=== PATIENT | male | born 1960 | race Caucasian/White ===

== ENCOUNTER 2017-06-18 05:15 | Inpatient (IN) | payer OTHER ==
--- NOTE | 2017-06-18 05:28 | ED ---
Abdominal Pain HPI - General Source: patient Mode of arrival: wheelchair Limitations: no limitations - History of Present Illness MD Complaint: abdominal pain Onset/Timin -: hour(s) Location: LUQ, RUQ, epigastric Radiation: back Severity: severe Quality: aching Consistency: constant Improves With: nothing Worsens With: nothing Associated Symptoms: nausea <Feliciano Zarco - Last Filed: 06/18/17 05:42> <Jurgen Alcazar - Last Filed: 06/18/17 09:23> - General Chief Complaint: Abdominal Pain Stated Complaint: Abd pain Time Seen by Provider: 06/18/17 05:22 - Related Data Home Medications Medication Instructions Recorded Confirmed Aspirin 81 mg PO HS 02/19/16 06/18/17 Atorvastatin [Lipitor] 20 mg PO HS 02/19/16 06/18/17 Lisinopril [Zestril] 10 mg PO HS 02/19/16 06/18/17 Nitroglycerin Sl Tabs [Nitrostat] 0.4 mg SUBLINGUAL Q5M PRN 02/19/16 06/18/17 Omeprazole [PriLOSEC] 40 mg PO AC-BRKFST 02/19/16 06/18/17 Metoprolol Tartrate [Lopressor] 50 mg PO DAILY 02/21/16 06/18/17 Allergies Allergy/AdvReac Type Severity Reaction Status Date / Time No Known Allergies Allergy Verified 06/18/17 07:34 Review of Systems ROS Other: All systems not noted in ROS Statement are negative. Constitutional: Denies: fever, chills Respiratory: Denies: cough, dyspnea Cardiovascular: Denies: chest pain, palpitations, syncope Gastrointestinal: Reports: as per HPI, abdominal pain, nausea. Denies: vomiting , diarrhea, melena, hematochezia Genitourinary: Denies: dysuria, hematuria Musculoskeletal: Reports: as per HPI, back pain Skin: Denies: rash Neurological: Denies: headache, weakness, numbness <Feliciano Zarco - Last Filed: 06/18/17 05:42> ROS Other: All systems not noted in ROS Statement are negative. <Jurgen Alcazar - Last Filed: 06/18/17 09:23> ROS Statement: Those systems with pertinent positive or pertinent negative responses have been documented in the HPI. Past Medical History Past Medical History: GERD/Reflux, Hyperlipidemia, Hypertension, Sleep Apnea/ CPAP/BIPAP Additional Past Medical History / Comment(s): DOES'NR USE HIS CPAP MACHINE. HAD CHICKEN POX IN HIS 30'S, COMPRESSION FX TO VERTEBRE History of Any Multi-Drug Resistant Organisms: None Reported Past Surgical History: Heart Catheterization, Heart Catheterization With Stent, Hernia Repair Past Anesthesia/Blood Transfusion Reactions: No Reported Reaction Date of Last Stent Placement:: UNK Past Psychological History: Depression Smoking Status: Former smoker - Past Family History Mother Family Medical History: AFIB, Congestive Heart Failure (CHF), Coronary Artery Disease (CAD), Vascular Disorder Additional Family Medical History / Comment(s): CABG, HAD BKA AND SOME TOES REMOVED FROM OTHER LEG D/T VASCULAR PROBLEMS Father Family Medical History: Cancer, COPD, Coronary Artery Disease (CAD), Hypertension, Liver Disease Additional Family Medical History / Comment(s): LIVER CANCER, CABG <CaroleeFeliciano - Last Filed: 06/18/17 05:42> General Exam Limitations: no limitations General appearance: alert, in no apparent distress Head exam: Present: atraumatic, normocephalic Eye exam: Present: normal appearance. Absent: scleral icterus, conjunctival injection Neck exam: Present: normal inspection, full ROM Respiratory exam: Present: normal lung sounds bilaterally. Absent: respiratory distress, wheezes, rales, rhonchi, stridor Cardiovascular Exam: Present: regular rate, normal rhythm, normal heart sounds. Absent: systolic murmur, diastolic murmur, rubs, gallop GI/Abdominal exam: Present: soft, tenderness (Mild upper abdominal tenderness.) , normal bowel sounds. Absent: distended, guarding, rebound, rigid, mass, pulsatile mass, hernia Extremities exam: Present: normal inspection, normal capillary refill. Absent: pedal edema, calf tenderness Back exam: Present: normal inspection. Absent: CVA tenderness (R), CVA tenderness (L) Neurological exam: Present: alert Skin exam: Present: warm, dry, intact, normal color. Absent: rash <CaroleeFeliciano - Last Filed: 06/18/17 05:42> General appearance: alert, in no apparent distress Head exam: Present: atraumatic, normocephalic, normal inspection Eye exam: Present: normal appearance, PERRL, EOMI. Absent: scleral icterus, conjunctival injection, periorbital swelling ENT exam: Present: normal exam, mucous membranes moist Neck exam: Present: normal inspection. Absent: tenderness, meningismus, lymphadenopathy Respiratory exam: Present: normal lung sounds bilaterally. Absent: respiratory distress, wheezes, rales, rhonchi, stridor Cardiovascular Exam: Present: regular rate, normal rhythm, normal heart sounds. Absent: systolic murmur, diastolic murmur, rubs, gallop, clicks GI/Abdominal exam: Present: soft, normal bowel sounds. Absent: distended, tenderness, guarding, rebound, rigid Extremities exam: Present: normal inspection, full ROM, normal capillary refill. Absent: tenderness, pedal edema, joint swelling, calf tenderness Back exam: Present: normal inspection Neurological exam: Present: alert, oriented X3, CN II-XII intact Psychiatric exam: Present: normal affect, normal mood Skin exam: Present: warm, dry, intact, normal color. Absent: rash <Jurgen Alcazar - Last Filed: 06/18/17 09:23> Course <Feliciano Zarco - Last Filed: 06/18/17 05:42> <Jurgen Alcazar - Last Filed: 06/18/17 09:23> Vital Signs 06/18/17 06/18/17 06/18/17 05:18 06:28 07:38 Temperature 97.3 F L Pulse Rate 62 45 L 47 L Respiratory 20 16 20 Rate Blood Pressure 198/92 156/69 178/62 O2 Sat by Pulse 100 97 98 Oximetry - Reevaluation(s) Reevaluation #1: 06/18/17 09:22 Patient has adequate pain control at this time. (Jurgen Alcazar) Reevaluation #2: 06/18/17 09:[address] Mata regarding patient, will schedule for operating room this morning (Jurgen Alcazar) Reevaluation #3: 06/18/17 09:22 Patient informed of diagnosis, prognosis, (Jrugen Alcazar) Medical Decision Making - EKG Data -: EKG Interpreted by Me EKG shows normal: sinus rhythm, axis (Normal), intervals (Normal), QRS complexes (Normal) Rate: bradycardia (Rate 56 bpm) Interpretation: other (There are T inversions in leads V3 through 6 concern for possible anterolateral ischemia. These T inversions were present on the comparison EKG from 02/19/16) <Feliciano Zarco - Last Filed: 06/18/17 05:42> - Lab Data Result diagrams: 06/18/17 05:30 06/18/17 05:30 - Radiology Data Radiology results: report reviewed (CT abdomen and pelvis is negative for acute disease, some right upper quadrant shows signs of cholecystitis including perisystolic cholestatic fluid and gallbladder wall thickening), image reviewed <Jurgen Alcazar - Last Filed: 06/18/17 09:23> - Medical Decision Making 57 LEF relational doll pain, right upper quadrant abdominal pain, positive Singh sign exam, positive cholecystitis on ultrasound, patient will be admitted to general surgery for evaluation and treatment (Jurgen Alcazar) - Lab Data Lab Results 06/18/17 06/18/17 06/18/17 Range/Units 05:30 05:30 05:30 WBC 9.6 (3.8-10.6) k/uL RBC 4.80 (4.30-5.90) m/uL Hgb 15.7 (13.0-17.5) gm/dL Hct 44.0 (39.0-53.0) % MCV 91.5 (80.0-100.0) fL MCH 32.6 (25.0-35.0) pg MCHC 35.7 (31.0-37.0) g/dL RDW 13.8 (11.5-15.5) % Plt Count 181 (150-450) k/uL Neutrophils % 77 % Lymphocytes % 14 % Monocytes % 4 % Eosinophils % 2 % Basophils % 0 % Neutrophils # 7.4 (1.3-7.7) k/uL Lymphocytes # 1.4 (1.0-4.8) k/uL Monocytes # 0.4 (0-1.0) k/uL Eosinophils # 0.2 (0-0.7) k/uL Basophils # 0.0 (0-0.2) k/uL Sodium 141 (137-145) mmol/L Potassium 4.4 (3.5-5.1) mmol/L Chloride 105 (98-107) mmol/L Carbon Dioxide 23 (22-30) mmol/L Anion Gap 13 mmol/L BUN 8 L (9-20) mg/dL Creatinine 0.95 (0.66-1.25) mg/dL Est GFR (MDRD) Af Amer >60 (>60 ml/min/1.73 sqM) Est GFR (MDRD) Non-Af >60 (>60 ml/min/1.73 sqM) Glucose 109 H (74-99) mg/dL Calcium 9.7 (8.4-10.2) mg/dL Total Bilirubin 0.9 (0.2-1.3) mg/dL AST 24 (17-59) U/L ALT 40 (21-72) U/L Alkaline Phosphatase 93 (38-126) U/L Troponin I <0.012 (0.000-0.034) ng/mL Total Protein 7.5 (6.3-8.2) g/dL Albumin 4.5 (3.5-5.0) g/dL Amylase <30 L (30-110) U/L Lipase 134 (23-300) U/L Urine Color Urine Appearance (Clear) Urine pH (5.0-8.0) Ur Specific [place] (1.001-1.035) Urine Protein (Negative) Urine Glucose (UA) (Negative) Urine Ketones (Negative) Urine Blood (Negative) Urine Nitrite (Negative) Urine Bilirubin (Negative) Urine Urobilinogen (<2.0) mg/dL Ur Leukocyte Esterase (Negative) 06/18/17 Range/Units 06:21 WBC (3.8-10.6) k/uL RBC (4.30-5.90) m/uL Hgb (13.0-17.5) gm/dL Hct (39.0-53.0) % MCV (80.0-100.0) fL MCH (25.0-35.0) pg MCHC (31.0-37.0) g/dL RDW (11.5-15.5) % Plt Count (150-450) k/uL Neutrophils % % Lymphocytes % % Monocytes % % Eosinophils % % Basophils % % Neutrophils # (1.3-7.7) k/uL Lymphocytes # (1.0-4.8) k/uL Monocytes # (0-1.0) k/uL Eosinophils # (0-0.7) k/uL Basophils # (0-0.2) k/uL Sodium (137-145) mmol/L Potassium (3.5-5.1) mmol/L Chloride (98-107) mmol/L Carbon Dioxide (22-30) mmol/L Anion Gap mmol/L BUN (9-20) mg/dL Creatinine (0.66-1.25) mg/dL Est GFR (MDRD) Af Amer (>60 ml/min/1.73 sqM) Est GFR (MDRD) Non-Af (>60 ml/min/1.73 sqM) Glucose (74-99) mg/dL Calcium (8.4-10.2) mg/dL Total Bilirubin (0.2-1.3) mg/dL AST (17-59) U/L ALT (21-72) U/L Alkaline Phosphatase (38-126) U/L Troponin I (0.000-0.034) ng/mL Total Protein (6.3-8.2) g/dL Albumin (3.5-5.0) g/dL Amylase (30-110) U/L Lipase (23-300) U/L Urine Color Yellow Urine Appearance Clear (Clear) Urine pH 8.0 (5.0-8.0) Ur Specific [place] 1.010 (1.001-1.035) Urine Protein Negative (Negative) Urine Glucose (UA) Negative (Negative) Urine Ketones Negative (Negative) Urine Blood Negative (Negative) Urine Nitrite Negative (Negative) Urine Bilirubin Negative (Negative) Urine Urobilinogen <2.0 (<2.0) mg/dL Ur Leukocyte Esterase Negative (Negative) Disposition <Feliciano Zarco - Last Filed: 06/18/17 05:42> <Jurgen Alcazar - Last Filed: 06/18/17 09:23> Clinical Impression: Acute cholecystitis Disposition: ADMITTED IP TO THIS HOSP Condition: Fair Referrals: Ronit Dent DO [Primary Care Provider] - 1-2 days
[2017-06-18] MEDS ORDERED: HYDROmorphone 1 MG/ML 1 ML SYRINGE IVP STA ×3 (05:36→09:52)
[2017-06-18] MEDS ORDERED: ONDANSETRON 4 MG/2 ML VIAL IVP STA (05:36)
[2017-06-18 05:58] LABS: ALT 40 U/L (21-72); AST 24 U/L (17-59); Alkaline Phosphatase 93 U/L (38-126); Amylase <30 U/L (30-110); Anion Gap 13 mmol/L; Blood Urea Nitrogen 8 mg/dL (9-20); Calcium 9.7 mg/dL (8.4-10.2); Carbon Dioxide 23 mmol/L (22-30); Chloride 105 mmol/L (98-107); Glucose 109 mg/dL (74-99); Non-African American GFR(MDRD) >60 (>60 ml/min/1.73 sqM); Potassium 4.4 mmol/L (3.5-5.1); Sodium 141 mmol/L (137-145); Total Bilirubin 0.9 mg/dL (0.2-1.3); Total Protein 7.5 g/dL (6.3-8.2)
[2017-06-18 06:09] LABS: Basophils % (A) 0 %; CH 32.5; CHCM 35.7; Eosinophils # (A) 0.2 k/uL (0-0.7); Eosinophils % (A) 2 %; HDW 2.93; HGB 15.7 gm/dL (13.0-17.5); Luc % (Auto) 2; Lymphocytes # (A) 1.4 k/uL (1.0-4.8); Lymphocytes % (A) 14 %; MCH 32.6 pg (25.0-35.0); MCHC 35.7 g/dL (31.0-37.0); MCV 91.5 fL (80.0-100.0); Mean Platelet Volume 7.5; Monocytes # (A) 0.4 k/uL (0-1.0); Monocytes % (A) 4 %; Neutrophils # (A) 7.4 k/uL (1.3-7.7); Neutrophils % (A) 77 %; RDW 13.8 % (11.5-15.5); WBC 9.6 k/uL (3.8-10.6); WBC (Perox) 9.69
[2017-06-18 06:28] LABS: Appearance,Urine Clear (Clear); Bilirubin,Urine Negative (Negative); Glucose,Urine (UA) Negative (Negative); Ketones,Urine Negative (Negative); Leukocyte Esterase,Urine Negative (Negative); Nitrite,Urine Negative (Negative); Protein,Urine Negative (Negative); UA Billing (MACRO vs. MICRO) CHEM; Urobilinogen,Urine <2.0 mg/dL (<2.0)
--- NOTE | 2017-06-18 07:27 | CT ---
EXAM: CT Abdomen and Pelvis Without Intravenous Contrast. CLINICAL HISTORY: Reason: Pain TECHNIQUE: Axial computed tomography images of the abdomen and pelvis without intravenous contrast. CTDI is 17.7 mGy and DLP is 1012.7 mGy-cm. This CT exam was performed using one or more of the following dose reduction techniques: automated exposure control, adjustment of the mA and/or kV according to patient size, and/or use of iterative reconstruction technique. COMPARISON: No relevant prior studies available. FINDINGS: Lower thorax: No acute findings. ABDOMEN: Liver: Within the limitations of a nonenhanced exam, no focal hepatic lesion is identified. Mild hepatic steatosis. Gallbladder and bile ducts: Multiple gallstones are identified within the gallbladder lumen, as well as within the gallbladder neck and proximal cystic duct. No findings to suggest biliary obstruction.. Pancreas: Unremarkable. No ductal dilation. Prominent duodenal diverticulum seen abutting the pancreatic head. Spleen: Unremarkable. No splenomegaly. Adrenals: Unremarkable. No mass. Kidneys and ureters: Unremarkable. No obstructing stones. No hydronephrosis. PELVIS: Bladder: Mild concentric urinary bladder wall thickening. Reproductive: Unremarkable as visualized. Appendix: No findings to suggest acute appendicitis. ABDOMEN + PELVIS: Stomach and bowel: No bowel obstruction or wall thickening. Scattered colonic diverticula, without evidence of acute diverticulitis. Peritoneum: Unremarkable. No significant fluid collection. No free air. Lymph nodes: Unremarkable. No enlarged lymph nodes. Vasculature: No aortic aneurysm. Bones: No acute fracture. IMPRESSION: Mild concentric urinary bladder wall thickening. Please correlate with urinalysis to exclude underlying inflammation/infection. Diverticulosis without evidence of acute diverticulitis. Cholelithiasis without evidence of biliary obstruction.
--- NOTE | 2017-06-18 09:07 | US ---
EXAMINATION TYPE: US abdomen limited DATE OF EXAM: 06/18/2017 COMPARISON: NONE CLINICAL HISTORY: Pain, attention RUQ. EXAM MEASUREMENTS: Liver Length: 21.8 cm Gallbladder Wall: 0.51 cm CBD: 0.68 cm Right Kidney: 6.2 x 12.2 x 5.2 cm Extensive midline bowel gas. Pancreas: Obscured by bowel gas Liver: Increased attenuation, decreased visualization of vessels suggestive of fatty infiltrate, hep atomegaly, left lobe obscured by bowel gas, limited views due to overlying bowel, mostly intercostal scanning Gallbladder: cholelithiasis, with mild wall thickening, sludge within. Some pericholecystic fluid ma y be present. Evidence for sonographic Singh's sign: yes CBD: not well visualized Right Kidney: wnl IMPRESSION: 1. Pericholecystic fluid, wall thickening, gallstones with a positive Singh sign. The common duct is somewhat prominent at 0.68 cm. Normal is less than 0.6 cm at this age. Clinical correlation is recom mended for acute cholecystitis. 2. Moderate fatty infiltration liver with hepatomegaly.
[2017-06-18] MEDS ORDERED: SODIUM CHLORIDE 0.9% 1,000 ML IV ONE (09:24)
--- NOTE | 2017-06-18 10:07 | P.GSCN ---
History of Present Illness Consult date: 06/18/17 Reason for Consult: RUQ pain Requesting physician: Jurgen Alcazar History of present illness: 57 yrs old male presenting with RUQ pain, severe /10 starting 5 pm last night. No nausea or vomiting. No jaundice. H/O cardiac stent 10 yrs ago .Follows up with Dr. BRANDEN Rodriguez. Patient denies SOB and chest pain. Past Medical History Past Medical History: GERD/Reflux, Hyperlipidemia, Hypertension, Sleep Apnea/ CPAP/BIPAP Additional Past Medical History / Comment(s): DOES'NR USE HIS CPAP MACHINE. HAD CHICKEN POX IN HIS 30'S, COMPRESSION FX TO VERTEBRE History of Any Multi-Drug Resistant Organisms: None Reported Past Surgical History: Heart Catheterization, Heart Catheterization With Stent, Hernia Repair Past Anesthesia/Blood Transfusion Reactions: No Reported Reaction Date of Last Stent Placement:: UNK Past Psychological History: Depression Smoking Status: Former smoker - Past Family History Mother Family Medical History: AFIB, Congestive Heart Failure (CHF), Coronary Artery Disease (CAD), Vascular Disorder Additional Family Medical History / Comment(s): CABG, HAD BKA AND SOME TOES REMOVED FROM OTHER LEG D/T VASCULAR PROBLEMS Father Family Medical History: Cancer, COPD, Coronary Artery Disease (CAD), Hypertension, Liver Disease Additional Family Medical History / Comment(s): LIVER CANCER, CABG Medications and Allergies Home Medications Medication Instructions Recorded Confirmed Type Aspirin 81 mg PO HS 02/19/16 06/18/17 History Atorvastatin [Lipitor] 20 mg PO HS 02/19/16 06/18/17 History Lisinopril [Zestril] 10 mg PO HS 02/19/16 06/18/17 History Nitroglycerin Sl Tabs [Nitrostat] 0.4 mg SUBLINGUAL Q5M PRN 02/19/16 06/18/17 History Omeprazole [PriLOSEC] 40 mg PO AC-BRKFST 02/19/16 06/18/17 History Metoprolol Tartrate [Lopressor] 50 mg PO DAILY 02/21/16 06/18/17 History Allergies Allergy/AdvReac Type Severity Reaction Status Date / Time No Known Allergies Allergy Verified 06/18/17 07:34 Surgical - Exam Vital Signs Temp Pulse Resp BP Pulse Ox 97.3 F L 62 20 198/92 100 06/18/17 05:18 06/18/17 05:18 06/18/17 05:18 06/18/17 05:18 06/18/17 05:18 Results - Labs 06/18/17 05:30 06/18/17 05:30 Abnormal Lab Results - Last 24 Hours (Table) 06/18/17 Range/Units 05:30 BUN 8 L (9-20) mg/dL Glucose 109 H (74-99) mg/dL Amylase <30 L (30-110) U/L Diabetes panel 06/18/17 Range/Units 05:30 Sodium 141 (137-145) mmol/L Potassium 4.4 (3.5-5.1) mmol/L Chloride 105 (98-107) mmol/L Carbon Dioxide 23 (22-30) mmol/L BUN 8 L (9-20) mg/dL Creatinine 0.95 (0.66-1.25) mg/dL Glucose 109 H (74-99) mg/dL Calcium 9.7 (8.4-10.2) mg/dL AST 24 (17-59) U/L ALT 40 (21-72) U/L Alkaline Phosphatase 93 (38-126) U/L Total Protein 7.5 (6.3-8.2) g/dL Albumin 4.5 (3.5-5.0) g/dL Calcium panel 06/18/17 Range/Units 05:30 Calcium 9.7 (8.4-10.2) mg/dL Albumin 4.5 (3.5-5.0) g/dL Pituitary panel 06/18/17 Range/Units 05:30 Sodium 141 (137-145) mmol/L Potassium 4.4 (3.5-5.1) mmol/L Chloride 105 (98-107) mmol/L Carbon Dioxide 23 (22-30) mmol/L BUN 8 L (9-20) mg/dL Creatinine 0.95 (0.66-1.25) mg/dL Glucose 109 H (74-99) mg/dL Calcium 9.7 (8.4-10.2) mg/dL Adrenal panel 06/18/17 Range/Units 05:30 Sodium 141 (137-145) mmol/L Potassium 4.4 (3.5-5.1) mmol/L Chloride 105 (98-107) mmol/L Carbon Dioxide 23 (22-30) mmol/L BUN 8 L (9-20) mg/dL Creatinine 0.95 (0.66-1.25) mg/dL Glucose 109 H (74-99) mg/dL Calcium 9.7 (8.4-10.2) mg/dL Total Bilirubin 0.9 (0.2-1.3) mg/dL AST 24 (17-59) U/L ALT 40 (21-72) U/L Alkaline Phosphatase 93 (38-126) U/L Total Protein 7.5 (6.3-8.2) g/dL Albumin 4.5 (3.5-5.0) g/dL Assessment and Plan (1) Acute cholecystitis Status: Acute Plan: 1. Plan for lap giovany possible open 2. Discussed with Dr. Sung regarding T wave inversion in lateral chest leads. Troponin is normal. Repeat Troponin levels. 3. Needs cardiac preop clearnce prior to surgery 4. DVT and Gi prophylaxis 5. Ancef 2gm IVPBx1 6. heparin 5000Units SQx1
[2017-06-18 10:31] VITALS: BMI 30.9
[2017-06-18] MEDS: HYDROmorphone 1 MG/ML 1 ML SYRINGE IVP PRN ×3 (11:32→23:59)
[2017-06-18] MEDS: METOPROLOL TARTRATE 25 MG TAB PO SCH ×2 (12:35→22:00)
[2017-06-18] MEDS: PANTOPRAZOLE 40 MG/10 ML VIAL IVP SCH (12:36)
--- NOTE | 2017-06-18 12:48 | ECHOF ---
Referral Reason:PREOP MEASUREMENTS -------- HEIGHT: 154.9 cm WEIGHT: 106.6 kg BP: IVSd: 1.2 cm (0.6 - 1.1) LVIDd: 4.5 cm (3.9 - 5.3) LVPWd: 1.3 cm (0.6 - 1.1) IVSs: 1.8 cm LVIDs: 2.3 cm LVPWs: 1.8 cm Ao Diam: 3.7 cm (2.0 - 3.7) AV Cusp: 2.6 cm (1.5 - 2.6) LA Diam: 3.7 cm (2.7 - 3.8) MV EXCURSION: 12.148 mm (> 18.000) MV EF SLOPE: 135 mm/s (70 - 150) EPSS: 1.0 cm MV E Luis A: 0.82 m/s MV DecT: 153 ms MV A Luis A: 0.23 m/s MV E/A Ratio: 3.60 RAP: 5.00 mmHg RVSP: 28.76 mmHg FINDINGS -------- Sinus rhythm. This was a technically good study. There is mild concentric left ventricular hypertrophy. Overall left ventricular systolic function is normal with, an EF between 55 - 60 %. The right ventricle is normal in size and function. The left atrium is normal in size. The right atrium is normal in size. The aortic valve is trileaflet, and appears structurally normal. No aortic stenosis or regurgitation. There is trace mitral regurgitation. Trace tricuspid regurgitation present. The right ventricular systolic pressure, as measured by Doppler, is 28.76mmHg. Pulmonic valve appears structurally normal. The aortic root size is normal. The pericardium is normal. CONCLUSIONS -------- 1. Sinus rhythm. 2. Trace tricuspid regurgitation present. 3. The right ventricular systolic pressure, as measured by Doppler, is 28.76mmHg. 4. Pulmonic valve appears structurally normal. 5. The aortic root size is normal. 6. The pericardium is normal. 7. This was a technically good study. 8. There is mild concentric left ventricular hypertrophy. 9. Overall left ventricular systolic function is normal with, an EF between 55 - 60 %. 10. The right ventricle is normal in size and function. 11. The left atrium is normal in size. 12. The right atrium is normal in size. 13. The aortic valve is trileaflet, and appears structurally normal. No aortic stenosis or regurgitation. 14. There is trace mitral regurgitation. TREATING MACHINE OPERATOR: Nidia Layne RDCS
[2017-06-18] MEDS ORDERED: IV FLUID CONTINUATION 1,000 ML IV ONE (13:16)
[2017-06-18] MEDS ORDERED: fentaNYL (PF) 50 MCG/ML 2 ML AMP IV ONE (13:19)
[2017-06-18] MEDS: NITROGLYCERIN OINT 1 INCH/GM PACKET TOPICAL SCH ×2 (13:24→18:01)
[2017-06-18] MEDS ORDERED: ceFAZolin 2 GM in SODIUM CHLORIDE 0.9% 100 ML IVPB ONE (13:28)
[2017-06-18] MEDS ORDERED: HEPARIN SODIUM,PORCINE 5,000 UNIT/ML 1 ML VIAL SQ ONE (13:28)
[2017-06-18] MEDS ORDERED: fentaNYL (PF) 50 MCG/ML 2 ML AMP ONE (13:57)
[2017-06-18] MEDS ORDERED: PROPOFOL 10 MG/ML 20 ML VIAL IV ONE (13:57)
[2017-06-18] MEDS ORDERED: KETOROLAC 30 MG/ML 1 ML VIAL ONE (13:57)
[2017-06-18] MEDS ORDERED: ROCURONIUM BROMIDE 10 MG/ML 10 ML VIAL IV ONE (13:57)
[2017-06-18] MEDS ORDERED: LIDOCAINE 1% INJ 10MG/ML (20 ML MDV) ONE (13:57)
[2017-06-18] MEDS ORDERED: NEOSTIGMINE 1 MG/ML 10 ML VIAL ONE (13:57)
[2017-06-18] MEDS ORDERED: SUCCINYLCHOLINE CHLORIDE 100 MG/5 ML SYR IV ONE (13:57)
[2017-06-18] MEDS ORDERED: GLYCOPYRROLATE 0.2 MG/ML 2 ML VIAL ONE (13:57)
[2017-06-18] MEDS ORDERED: MIDAZOLAM 2 MG/2 ML VIAL ONE (13:57)
[2017-06-18] MEDS ORDERED: HYDROmorphone (PF) 1 MG/ML ONE (13:57)
[2017-06-18] MEDS ORDERED: LIDOCAINE 2%-EPI 1:100,000 20 ML VIAL SQ ONE (14:22)
[2017-06-18] MEDS ORDERED: LACTATED RINGERS 1,000 ML IV ONE (14:23)
--- NOTE | 2017-06-18 15:10 | P.OP ---
Date of Procedure: 06/18/17 Preoperative Diagnosis: Acute gangrenous cholecystitis H/O CAD s/p stents Postoperative Diagnosis: Acute gangrenous cholecystitis Procedure(s) Performed: Laparoscopic cholecystectomy Implants: Anesthesia: CLAU local Surgeon: Eve Mata Pathology: other Condition: stable Disposition: PACU Indications for Procedure: Operative Findings: Description of Procedure: The patient was brought to the operating room and placed in supine position with both arms out. General anesthesia with endotracheal intubation was performed as per anesthesia team. Chlorhexidine was used to prep the abdomen followed by application of sterile drapes. A timeout was performed to verify correct patient and correct procedure. Patient was confirmed to receive perioperative IV antibiotics , heparin 5000 units subcutaneous injection and bilateral SCDs were placed. A 5 mm skin incision was made below the left costal margin at the anterior axillary line. A Veress needle was inserted and pneumoperitoneum was established to a pressure of 15 mmHg. A 5 mm Optiview trocar was loaded on a 5 mm 30 laparoscope and the peritoneal cavity was entered under direct vision using the Optiview technique. Additional 5 mm trocar was placed in the supraumbilical location and two 5 mm trocars along the right subcostal margin. The left 5 mm trocar was upsized to 10mm. The patient was placed in reverse Trendelenburg with right side up. The fundus of the gallbladder was grasped with an atraumatic grasper and was retracted over the dome of the liver. The infundibulum was grasped with an atraumatic grasper and retracted towards the pelvis to expose the Calot's triangle. Lateral and medial peritoneal attachment of the gallbladder bladder was dissected. Circumferential dissection was carried out around the cystic artery and the cystic duct to obtain adequate length for clip application. All the surrounding fibrofatty tissue were removed. Critical view was obtained with cystic duct and cystic artery as the only two structures entering the gallbladder. Two clips were applied on the patient's side and one on the specimen side on the cystic duct first followed by the cystic artery. Endoshears were used to divide the cystic duct and the cystic artery. The gallbladder was taken off the liver bed using a L-hook. It was placed in an endocatch specimen bag and removed through the 10mm port. The gallbladder was passed off as a specimen. The abdominal cavity was inspected. The clips on the cystic duct and cystic artery stump were intact and no bleeding noted from the liver bed. All the trocar sites were examined and no evidence of bleeding. The 10mm port site was closed with two transfascial sutures of 0 Vicryl using a Marcio Sumaya device. The pneumoperitoneum was evacuated and all the trocars were removed. Local anesthetic was infiltrated along the trocar sites and incisions were closed using 4-0 Monocryl followed by application of Dermabond skin glue. The sponge, instrument and needle count were correct x2. Patient was extubated and taken to post anesthesia care unit in stable condition.
--- NOTE | 2017-06-18 15:29 | CONS ---
CONSULTATION This is a 57-year-old gentleman, history of hypertension, hyperlipidemia, CAD with previous stenting of a diagonal branch performed several years ago. This gentleman sees me in the office usually. He is remarkably active, has no symptoms of angina and recent cardiac cath from February of 2016 revealed that his stented segment was patent. There was no other significant disease. Ejection fraction was 60%. He came into the hospital with right upper quadrant pain. Strongly suggestive of acute cholecystitis and also the diagnostic studies confirm this and he is going for the surgery. I do not see any contraindication. He remains at moderate risk. He has no overt angina. Recent cardiac cath from about 15 months ago did not reveal any significant obstructive disease and LV function is well preserved. His functional capacity is decent. I expect that this is a moderate risk. There is no contraindication but I am recommending that we resume his beta blockers and his other medications. I would recommend cautious fluid administration and optimal blood pressure control perioperatively. PAST MEDICAL HISTORY: 1. CAD with previous history of stenting of the diagonal branch that was patent 15 months ago. 2. Hypertension. 3. Hypercholesterolemia. 4. Currently admitted with presentation to the hospital with acute cholecystitis. MEDICATIONS: At home include metoprolol tartrate 50 mg b.i.d., atorvastatin and he also takes lisinopril and aspirin 81 mg daily. PHYSICAL EXAMINATION: Blood pressure is 130/80, pulse rate is 70 per minute, regular. HEENT unremarkable, fundus was not examined by me. Neck is supple. No JVD. I do not hear a carotid bruit. Heart exam reveals S1, S2 are normal. No rub, murmur or gallop. Lungs are clear. Abdomen is soft. There is a mild right upper quadrant tenderness. Lower extremities reveal normal pulses. No edema. Central nervous system is normal. EKG revealed sinus mechanism with a precordial ST-T wave changes. These changes are not new. There were also seen before and do not represent ischemia. These are nonspecific changes. Lab data reveals that the troponin levels are normal. IMPRESSION: 1. Acute cholecystitis going for gallbladder surgery. 2. Stable coronary artery disease with a patent vessels and unremarkable cardiac cath 15 months ago. 3. Hypertension. 4. Hyperlipidemia. RECOMMENDATION: I am recommending that he can proceed with the proposed surgery. There is no contraindication. I would recommend cautious fluid administration and optimal blood pressure control perioperatively. I have discussed my thoughts in detail with the patient. I would recommend that we resume all his medications particularly beta- blockers as soon as possible. Thank you very much for the consult. SHARIF / SHAILESH: [id number] /
[2017-06-18] MEDS: HYDROmorphone 1 MG/ML 1 ML SYRINGE IVP ONE ×2 (15:58→16:04)
[2017-06-18 20:47] VITALS: RESP 16
[2017-06-18] MEDS: HYDROcodone/APAP 5-325MG 1 EACH TAB PO PRN (20:55)
[2017-06-18] MEDS ORDERED: LISINOPRIL 10 MG TAB PO SCH (21:00)
[2017-06-18] MEDS ORDERED: ATORVASTATIN 20 MG TAB PO SCH (21:00)
[2017-06-19] MEDS: NITROGLYCERIN OINT 1 INCH/GM PACKET TOPICAL SCH ×2 (00:03→06:13)
[2017-06-19] MEDS: HYDROcodone/APAP 5-325MG 1 EACH TAB PO PRN ×4 (02:50→14:06)
[2017-06-19 08:31] VITALS: BP 112/69; PULSE 63; TEMP 98.7
[2017-06-19] MEDS: METOPROLOL TARTRATE 25 MG TAB PO SCH ×2 (08:42→08:43)
[2017-06-19] MEDS: PANTOPRAZOLE 40 MG/10 ML VIAL IVP SCH (08:43)
--- NOTE | 2017-06-19 13:00 | P.DS ---
Providers Date of admission: 06/18/17 09:24 Expected date of discharge: 06/19/17 Attending physician: Eve Mata Consults: 06/18/17 09:52 Consult Physician Routine Consulting Provider: Eve Mata Consult Reason/Comments: cholecystitis Do you want consulting provider notified?: Yes 06/18/17 10:24 Consult Physician Routine Consulting Provider: Daniel Rodriguez Consult Reason/Comments: pre op cardiac clearance Do you want consulting provider notified?: Yes Primary care physician: Ronit Dent [place] [facility] Course: 57-year-old who presented to the emergency room on the day of admission with right upper quadrant pain started the evening before. Stated he was not nauseated did not vomit.. Patient was seen in the emergency room by surgical service. In the emergency room patient did have a computed tomography scan of the abdomen pelvis it showed diverticulosis without evidence of acute diverticulitis. Cholelithiasis without evidence of biliary obstruction. Additionally the patient had an ultrasound of the abdomen showed evidence cholelithiasis with mild wall thickening with sludge evidence for sonographic Singh's sign common bile duct not well visualized. Patient was seen by cardiology service before procedure who indicated moderate risk but no contraindication with proceeding with surgical procedure Patient electively underwent a laparoscopic cholecystectomy for an acute gangrenous cholecystitis Impression discharge diagnosis Present on admission right upper quadrant pain suspect due to an acute gangrenous cholecystitis Known coronary artery disease with prior coronary stenting to the diagonal Hypertension essential Hyperlipidemia Preserved LV function EF 60% The above impression and plan of care have been discussed and directed by signing physician. Sara Raymond nurse practitioner acting as scribe for signing physician. Patient Condition at Discharge: Fair Plan - Discharge Summary New Discharge Prescriptions: New Docusate [Colace] 100 mg PO BID #30 capsule Hydrocodone/Acetaminophen [[place] 5-325] 1 each PO Q4HR PRN #20 tab PRN Reason: Pain Metoprolol Tartrate [Lopressor] 25 mg PO BID #0 tab Continue Lisinopril [Zestril] 10 mg PO HS Atorvastatin [Lipitor] 20 mg PO HS Nitroglycerin Sl Tabs [Nitrostat] 0.4 mg SUBLINGUAL Q5M PRN PRN Reason: Chest Pain Omeprazole [PriLOSEC] 40 mg PO AC-BRKFST Aspirin 81 mg PO HS Discontinued Metoprolol Tartrate [Lopressor] 50 mg PO DAILY Discharge Medication List Aspirin 81 mg PO HS 02/19/16 [History] Atorvastatin [Lipitor] 20 mg PO HS 02/19/16 [History] Lisinopril [Zestril] 10 mg PO HS 02/19/16 [History] Nitroglycerin Sl Tabs [Nitrostat] 0.4 mg SUBLINGUAL Q5M PRN 02/19/16 [History] Omeprazole [PriLOSEC] 40 mg PO AC-BRKFST 02/19/16 [History] Docusate [Colace] 100 mg PO BID #30 capsule 06/18/17 [Rx] Hydrocodone/Acetaminophen [[place] 5-325] 1 each PO Q4HR PRN #20 tab 06/18/17 [Rx] Metoprolol Tartrate [Lopressor] 25 mg PO BID #0 tab 06/19/17 [Rx] Follow up Appointment(s)/Referral(s): Eve Mata MD [STAFF PHYSICIAN] - 06/24/17 8:30 am Ronit Dent DO [Primary Care Provider] - 06/24/17 3:00 pm Patient Instructions/Handouts: Laparoscopic Cholecystectomy (DC) Activity/Diet/Wound Care/Special Instructions: OK to shower . No soaking bath. No heavy lifting more than 10 lbs for 6 weeks post surgery. No driving while taking narcotics for pain. May use ice packs for local pain relief Take Motrin 600 mg po TID after meals if pain is not controlled Use incentive spirometry 10 times an hour while awake Return to work after follow up with Dr Mata Discharge Disposition: HOME SELF-CARE
== END 2017-06-19 14:16 | disposition home or self-care (01) | DRG 419 ==
LOC: EC 05:15 → 3SUR 09:24
PROVIDERS: ADMIT Surgery; ATTEND Surgery
PROC: 0FT44ZZ Resection of Gallbladder, Percutaneous Endoscopic Approach (ICD-10-PCS; principal; 2017-06-18 09:35)
DX: K81.0 Acute cholecystitis (principal); I10 Essential (primary) hypertension; G47.30 Sleep apnea, unspecified; K21.9 Gastro-esophageal reflux disease without esophagitis; F32.9 Major depressive disorder, single episode, unspecified; E78.00 Pure hypercholesterolemia, unspecified; I25.10 Atherosclerotic heart disease of native coronary artery without angina pectoris; Z79.82 Long term (current) use of aspirin; Z95.5 Presence of coronary angioplasty implant and graft; Z79.899 Other long term (current) drug therapy; Z82.5 Family history of asthma and other chronic lower respiratory diseases; Z87.891 Personal history of nicotine dependence; Z80.0 Family history of malignant neoplasm of digestive organs; Z82.49 Family history of ischemic heart disease and other diseases of the circulatory system
CPT/HCPCS: 36415; 74176; 76705; 80053; 81003; 82150; 83690; 84484; 85025; 88304; 93005; 93306; 96361; 96374; 96375; 96376; 99285

== ENCOUNTER → 2017-06-24 | Outpatient (CLI) | payer OTHER ==
[2017-06-24 09:49] LABS: Basophils % (A) 1 %; CH 32.7; CHCM 35.2; Eosinophils # (A) 0.4 k/uL (0-0.7); Eosinophils % (A) 5 %; HCT 44.2 % (39.0-53.0); HDW 3.12; HGB 14.8 gm/dL (13.0-17.5); Luc # (Auto) 0.13; Luc % (Auto) 2; Lymphocytes # (A) 1.5 k/uL (1.0-4.8); Lymphocytes % (A) 20 %; MCH 31.3 pg (25.0-35.0); MCHC 33.5 g/dL (31.0-37.0); MCV 93.4 fL (80.0-100.0); Mean Platelet Volume 7.7; Monocytes # (A) 0.5 k/uL (0-1.0); Monocytes % (A) 6 %; Neutrophils # (A) 4.9 k/uL (1.3-7.7); Neutrophils % (A) 66 %; RBC 4.74 m/uL (4.30-5.90); RDW 13.7 % (11.5-15.5); WBC 7.4 k/uL (3.8-10.6); WBC (Perox) 7.21
[2017-06-24 10:01] LABS: ALT 45 U/L (21-72); AST 34 U/L (17-59); Alkaline Phosphatase 79 U/L (38-126); Anion Gap 12 mmol/L; Blood Urea Nitrogen 9 mg/dL (9-20); Calcium 9.6 mg/dL (8.4-10.2); Carbon Dioxide 24 mmol/L (22-30); Chloride 109 mmol/L (98-107); Cholesterol 184 mg/dL (<200); Creatine Kinase 43 U/L (55-170); Glucose 91 mg/dL (74-99); HDL Cholesterol 32 mg/dL (40-60); Magnesium 2.1 mg/dL (1.6-2.3); Non-African American GFR(MDRD) >60 (>60 ml/min/1.73 sqM); Phosphorous 4.1 mg/dL (2.5-4.5); Potassium 4.1 mmol/L (3.5-5.1); Sodium 145 mmol/L (137-145); Total Bilirubin 0.9 mg/dL (0.2-1.3); Total Protein 7.3 g/dL (6.3-8.2)
[2017-06-24 10:56] LABS: Erythrocyte Sedimentation Rate 25 mm/hr (0-15)
== END | disposition home or self-care (01) ==
LOC: LABWHC1 09:08
PROVIDERS: ATTEND Family Medicine
DX: E78.5 Hyperlipidemia, unspecified (principal); I10 Essential (primary) hypertension; M62.40 Contracture of muscle, unspecified site
CPT/HCPCS: 36415; 80053; 80061; 82550; 83735; 84100; 84443; 85025; 85652

== ENCOUNTER → 2018-02-13 | Outpatient (CLI) | payer OTHER ==
[2018-02-13 10:19] LABS: Basophils % (A) 1 %; Eosinophils # (A) 0.3 k/uL (0-0.7); Eosinophils % (A) 4 %; HGB 14.7 gm/dL (13.0-17.5); Lymphocytes # (A) 1.5 k/uL (1.0-4.8); Lymphocytes % (A) 22 %; MCH 30.5 pg (25.0-35.0); MCHC 33.4 g/dL (31.0-37.0); MCV 91.4 fL (80.0-100.0); Mean Platelet Volume 7.8; Monocytes # (A) 0.4 k/uL (0-1.0); Monocytes % (A) 6 %; Neutrophils # (A) 4.6 k/uL (1.3-7.7); Neutrophils % (A) 66 %; Platelet Count 176 k/uL (150-450); RBC 4.82 m/uL (4.30-5.90); RDW 13.8 % (11.5-15.5); WBC 6.9 k/uL (3.8-10.6)
[2018-02-13 12:18] LABS: ALT 31 U/L (21-72); AST 24 U/L (17-59); Albumin 4.3 g/dL (3.5-5.0); Alkaline Phosphatase 86 U/L (38-126); Anion Gap 15 mmol/L; Blood Urea Nitrogen 13 mg/dL (9-20); Calcium 9.3 mg/dL (8.4-10.2); Carbon Dioxide 24 mmol/L (22-30); Chloride 106 mmol/L (98-107); Cholesterol 172 mg/dL (<200); Glucose 102 mg/dL (74-99); HDL Cholesterol 31 mg/dL (40-60); LDL Cholesterol,Calculated 94 mg/dL (0-99); Potassium 4.4 mmol/L (3.5-5.1); Sodium 145 mmol/L (137-145); Total Bilirubin 0.9 mg/dL (0.2-1.3); Triglycerides 234 mg/dL (<150)
[2018-02-13 12:37] LABS: PSA Annual Screen 0.58 ng/mL (0.00-4.00)
== END | disposition home or self-care (01) ==
LOC: LABWHC1 09:47
PROVIDERS: ATTEND Family Medicine
DX: E78.5 Hyperlipidemia, unspecified (principal); I10 Essential (primary) hypertension; K21.9 Gastro-esophageal reflux disease without esophagitis; I25.10 Atherosclerotic heart disease of native coronary artery without angina pectoris; Z12.5 Encounter for screening for malignant neoplasm of prostate
CPT/HCPCS: 80053; 80061; 85025; 36415; G0103

== ENCOUNTER → 2018-09-14 | Outpatient (CLI) | payer OTHER ==
[~2018-09-14] MED LIST: REGADENOSON 0.4 MG/5 ML SYRINGE IV ONE
--- NOTE | 2018-09-14 13:53 | EST ---
EXERCISE STRESS AGE: 58 SEX: M HT: 6'1" WT: 250 PROTOCOL: Lexiscan Cardiolite Stress Test HEART RATE REST: 57 BLOOD PRESSURE REST: 122/62 MAXIMUM HEART RATE ACHIEVED: 74 MAXIMUM BLOOD PRESSURE: 122/62 85% MPHR: 139 100% MPHR: 164 INDICATIONS: Dyspnea, abnormal EKG. CLINICAL INFORMATION: Baseline rhythm is sinus mechanism, rate 57, normal axis, intervals, T-wave inversion anteriorly, cannot exclude anterior myocardial infarction and anterior wall ischemia. Baseline blood pressure 122/62 mmHg. Patient received injection of Lexiscan. Electrocardiographic monitoring revealed no evidence of diagnostic ischemic ST deviation. Cardiolite was injected per protocol. CONCLUSION: 1. Nondiagnostic electrocardiograph stress testing. 2. Nuclear images will be reported separately. MMODL / IJN: [id number] /
--- NOTE | 2018-09-14 15:04 | NM ---
EXAMINATION TYPE: NM stress lexiscan cardiolite DATE OF EXAM: 09/14/2018 COMPARISON: NONE HISTORY: Dyspnea TECHNIQUE: After the intravenous administration of 9.6 mCi Tc 99m Sestamibi - Cardiolite resting SPE CT images acquired 45 minutes post injection. The patient received 0.4mg Lexiscan, 24.8 mCi Tc 99m Sestamibi - Stress images obtained [address] injection FINDINGS: Review of stress and rest SPECT images demonstrates no distinct perfusion abnormality. Gated analysi s shows some questionable paradoxical wall motion with an estimated left ventricular ejection fractio n of 62 %. IMPRESSION: No scintigraphic evidence for reversible ischemia. Consider echocardiographic correlation for wall mo tion.
== END | disposition home or self-care (01) ==
LOC: RADNMMAIN 08:03
PROVIDERS: ATTEND Family Medicine
DX: R06.00 Dyspnea, unspecified (principal); R68.89 Other general symptoms and signs
CPT/HCPCS: 93017; 78452; A9500; J2785

== ENCOUNTER → 2018-12-09 | Outpatient (CLI) | payer OTHER ==
[2018-12-09 09:37] LABS: Basophils % (A) 1 %; Eosinophils # (A) 0.2 k/uL (0-0.7); Eosinophils % (A) 3 %; HCT 44.8 % (39.0-53.0); HGB 14.7 gm/dL (13.0-17.5); Lymphocytes # (A) 1.3 k/uL (1.0-4.8); Lymphocytes % (A) 17 %; MCH 30.9 pg (25.0-35.0); MCHC 32.8 g/dL (31.0-37.0); MCV 94.4 fL (80.0-100.0); Mean Platelet Volume 7.3; Monocytes # (A) 0.3 k/uL (0-1.0); Monocytes % (A) 5 %; Neutrophils # (A) 5.3 k/uL (1.3-7.7); Neutrophils % (A) 73 %; Platelet Count 179 k/uL (150-450); RBC 4.74 m/uL (4.30-5.90); RDW 13.8 % (11.5-15.5); WBC 7.3 k/uL (3.8-10.6)
[2018-12-09 16:49] LABS: Albumin 4.4 g/dL (3.80-4.90); Albumin/Globulin Ratio 2.1 (1.60-3.17); Anion Gap 8.3 mmol/L (4.00-12.00); Carbon Dioxide 26.7 mmol/L (21.6-31.8); Globulin 2.1 g/dL (1.6-3.3); LDL Cholesterol,Calculated 96.8 mg/dL (0.0-131.0); Potassium 4.2 mmol/L (3.5-5.5); Total Bilirubin 0.9 mg/dL (0.3-1.2); Total Protein 6.5 g/dL (6.2-8.2); VLDL Calculation 42.2 mg/dL (5.00-40.00)
[2018-12-09 18:09] LABS: Hemoglobin A1C 4.9 % (4.0-6.0)
== END | disposition home or self-care (01) ==
LOC: LABWHC1 08:13
PROVIDERS: ATTEND Family Medicine
DX: I10 Essential (primary) hypertension (principal); I25.10 Atherosclerotic heart disease of native coronary artery without angina pectoris
CPT/HCPCS: 80053; 80061; 85025; 83036; 36415; G0103

== ENCOUNTER → 2019-11-02 | Outpatient (CLI) | payer OTHER ==
[2019-11-02 09:22] LABS: Basophils # (A) 0.1 k/uL (0-0.2); Basophils % (A) 1 %; Eosinophils # (A) 0.6 k/uL (0-0.7); Eosinophils % (A) 10 %; HCT 42.5 % (39.0-53.0); HGB 14.9 gm/dL (13.0-17.5); Lymphocytes # (A) 1.1 k/uL (1.0-4.8); Lymphocytes % (A) 19 %; MCH 32.8 pg (25.0-35.0); MCV 93.6 fL (80.0-100.0); Monocytes # (A) 0.3 k/uL (0-1.0); Monocytes % (A) 5 %; Neutrophils # (A) 3.7 k/uL (1.3-7.7); Neutrophils % (A) 63 %; Platelet Count 220 k/uL (150-450); RBC 4.54 m/uL (4.30-5.90); RDW 12.9 % (11.5-15.5); WBC 5.8 k/uL (3.8-10.6)
[2019-11-02 17:05] LABS: African American GFR (CKD) 96.4 (60.0-200.0); Albumin 4.5 g/dL (3.80-4.90); Albumin/Globulin Ratio 2.5 (1.60-3.17); Calcium 9.2 mg/dL (8.7-10.3); Chol/HDL Ratio 4.96; Globulin 1.8 g/dL (1.6-3.3); Non-African American GFR(CKD) 83.2 (60.0-200.0); Potassium 4.4 mmol/L (3.5-5.5); Total Bilirubin 1.4 mg/dL (0.2-1.2); Total Protein 6.3 g/dL (6.2-8.2)
[2019-11-02 19:07] LABS: Hemoglobin A1C 4.7 % (4.0-6.0)
== END | disposition home or self-care (01) ==
LOC: LABWHC1 08:43
PROVIDERS: ATTEND Family Medicine
DX: E78.5 Hyperlipidemia, unspecified (principal); I10 Essential (primary) hypertension
CPT/HCPCS: 36415; 80053; 80061; 83036; 85025

== ENCOUNTER → 2021-04-23 | Outpatient (CLI) | payer OTHER ==
[2021-04-23 09:29] LABS: HCT 37.3 % (39.0-53.0); HGB 13.8 gm/dL (13.0-17.5); MCH 34.2 pg (25.0-35.0); MCHC 36.9 g/dL (31.0-37.0); MCV 92.7 fL (80.0-100.0); Mean Platelet Volume 7.4; Platelet Count 160 k/uL (150-450); RBC 4.02 m/uL (4.30-5.90); RDW 13.3 % (11.5-15.5); WBC 6.3 k/uL (3.8-10.6)
[2021-04-23 09:45] LABS: Potassium 4.4 mmol/L (3.5-5.1)
== END | disposition home or self-care (01) ==
LOC: LABPAT 09:05
PROVIDERS: ATTEND Internal Medicine Cardiovascular Disease
DX: Z01.812 Encounter for preprocedural laboratory examination (principal); I25.10 Atherosclerotic heart disease of native coronary artery without angina pectoris
CPT/HCPCS: 36415; 80051; 82565; 84520; 85027

== ENCOUNTER → 2021-09-27 | Outpatient (CLI) | payer OTHER ==
--- NOTE | 2021-09-27 10:21 | US ---
EXAMINATION TYPE: US duplex aorta DATE OF EXAM: 09/27/2021 COMPARISON: NONE CLINICAL HISTORY: 61-year-old male Z87.891 Personal history of nicotine dependence. Father had a AAA, no symptoms per patient, smoker. TECHNIQUE: Multiple sonographic images of the abdominal aorta are obtained. FINDINGS: Foreign Student Adviser notes: Large patient body habitus EXAM MEASUREMENTS: Abdominal Aorta: Proximal: bowel gas obscures imaging Mid: 1.6 x 1.6cm Distal: 1.4 x 1.5cm Bifurcation: Right: not seen - bowel gas. Left: not seen - bowel gas IMPRESSION: Both the upper abdominal aorta as well as the aortic bifurcation/common iliac arteries are obscured b y bowel gas shadowing. No evidence for AAA in the mid or lower abdominal aorta.
== END | disposition home or self-care (01) ==
LOC: RADUSWWP 07:02
PROVIDERS: ATTEND Family Medicine
DX: Z87.891 Personal history of nicotine dependence (principal); Z82.49 Family history of ischemic heart disease and other diseases of the circulatory system
CPT/HCPCS: 93979

== ENCOUNTER 2024-05-25 09:00 | Day surgery (SDC) | payer OTHER ==
[2024-05-25] MEDS ORDERED: PROPOFOL 10 MG/ML 20 ML VIAL IV ONE (09:42)
--- NOTE | 2024-06-04 15:53 | PCN ---
PROCEDURE NOTE BRIEF HISTORY: The patient is a 64-year-old pleasant white male scheduled for elective colonoscopy as a part of screening for colorectal neoplasia. PROCEDURE PERFORMED: Colonoscopy with biopsy. PREOPERATIVE DIAGNOSIS: Screening for colon cancer. ANESTHESIA: IV sedation. DESCRIPTION OF PROCEDURE: After informed consent was obtained from the patient, he was brought into the endoscopy unit. IV conscious sedation was administered by Anesthesia under continuous monitoring. Initial digital rectal examination was normal. The Olympus CF-190 video colonoscope was inserted into the rectum, gradually advanced into the cecum. Careful examination was performed as the scope was gradually being withdrawn. Ileocecal valve and appendiceal orifice were visualized and appeared normal. The prep was fair. Mucosa of the cecum, ascending colon, transverse colon, descending colon, sigmoid colon appeared normal. In the distal sigmoid colon, there was a 5 mm polyp that was removed by cold biopsy. Rectum appeared normal. Retroflexion was performed in the rectum. No lesions were noted. There were diffuse diverticulosis noted throughout the entire colon, more predominant in the left colon. The patient tolerated the procedure well. IMPRESSION: 1. 5 mm colon polyp, status post removal by cold biopsy. 2. Scattered diffuse diverticulosis. RECOMMENDATIONS: Findings of this examination were discussed with the patient as well as his family. He was advised to follow up with the biopsy results. If the biopsy reveals adenoma, recommend a repeat colonoscopy in 5 years. MMODL / IJN: [id number] /
== END 2024-05-25 10:31 ==
LOC: ORWHC2ENDO 09:00
PROVIDERS: ATTEND Internal Medicine Gastroenterology
DX: Z12.11 Encounter for screening for malignant neoplasm of colon (principal); K63.5 Polyp of colon; K57.30 Diverticulosis of large intestine without perforation or abscess without bleeding; I10 Essential (primary) hypertension; E78.5 Hyperlipidemia, unspecified; M19.90 Unspecified osteoarthritis, unspecified site; I25.10 Atherosclerotic heart disease of native coronary artery without angina pectoris; Z79.82 Long term (current) use of aspirin; Z79.899 Other long term (current) drug therapy; Z95.5 Presence of coronary angioplasty implant and graft
CPT/HCPCS: 45380; 88305

== ENCOUNTER → 2024-09-30 | Outpatient (CLI) | payer OTHER ==
[2024-09-30 14:53] VITALS: BP 149/72; PULSE 58; RESP 16; TEMP 97.6
--- NOTE | 2024-09-30 15:24 | P.SLEEP ---
History of Present Illness DATE: 09/30/2024 CONSULTATION/NEW PATIENT EVALUATION HISTORY OF PRESENT ILLNESS/SLEEP-WAKE EVALUATION: 64-year-old gentleman had been evaluated in the sleep center for possible obstructive sleep apnea hypopnea syndrome. SLEEP SCHEDULE: Usually sleep schedule from midnight until 7:20 AM on weekdays and until 8 AM on weekend. FALLING ASLEEP: No problems with falling asleep, no TV in bedroom. DURING SLEEP: Patient usually sleeps on the side position with loud snoring and witnessed episodes of stop breathing during the sleep by his . Patient wakes up from sleep 3 times with nocturia, dry mouth. Positive history of sleep talking. No history of hypnogogical hallucinations, sleep paralysis, or cataplexy. DURING THE DAY/WAKE STATE: In the morning patient wake up tired, has difficulties to pay attention, has problems with memory, concentration, irritability.. [place]ba sleepiness scale is slightly increased to 10. Patient usually does not take naps. PAST MEDICAL HISTORY: Hypertension, coronary artery disease, acid reflux, allergy, hyperlipidemia. PAST SURGICAL HISTORY: Stent insertion to coronary arteries, cholecystectomy. MEDICATIONS: Please see below. SOCIAL HISTORY: Please see below. FAMILY HISTORY: Please see below. REVIEW OF SYSTEMS: Snoring, multiple awakenings from sleep, sleepiness during the day. No fevers. No double vision. No recent chest pain. No shortness of breath. No abdominal pain. No bleeding episodes. No blood in urine. No seizure episodes. PHYSICAL EXAMINATION: GENERAL: A pleasant patient without any distress. VITAL SIGNS: Please see below, weight 253 pounds, BMI 34.1. HEENT: PERRLA, EOMI. Evaluation of oropharynx showed tongue protrudes midline, low position of soft palate Mallampati 4, retrognathia 2 mm. NECK: Supple. No JVD. Thyroid is not palpable. 18.5 inches in circumference. LUNGS: Clear to percussion and to auscultation. Good air exchange. No wheezing or rhonchi. HEART: S1, S2 regular. No murmurs, gallops or rubs. ABDOMEN: Soft and nontender. Bowel sounds are present. No organomegaly appreciated. EXTREMITIES: No clubbing or cyanosis. YOUTH PROGRAM DIRECTOR: Awake, alert, and oriented x3. Cranial nerves 2 to 7 intact. There is no fasciculation or atrophy noted. No focal deficits observed. ASSESSMENT: 1. Loud snoring, witnessed episodes of stop breathing during the sleep, extremely low position of soft palate Mallampati 4, retrognathia 2 mm, wide neck 18.5 inches in circumference, sleepiness with [place] Sleepiness Scale 10. Obstructive sleep apnea hypopnea syndrome. 2. Obesity, BMI 34.1. 3. Hypertension. 4. Coronary artery disease status post stent insertion. 5 acid reflux. 6 . Hyperlipidemia. 7. BPH. 8. Allergy. 9 . Status post cholecystectomy. PLAN: 1. Polysomnography for evaluation of patient's breathing during sleep. 2. Following plan after reading sleep study. 3. Preferable position during sleep on the side. 4. No driving if patient feels any sleepiness. Patient is aware of civil and criminal liability for unsafe driving. 5. Sleep hygiene with regular sleep time for at least 7.5-8 hours. 6. Watching and losing weight. Thank you very much for referring this patient for consultation. Sincerely, Salty Boswell MD, PhD, FAASM. Diplomat of [employer], Sleep Medicine Board by [employer] [facility] [place] cc: Ronit Dent MD Past Medical History Past Medical History: GERD/Reflux, Hyperlipidemia, Hypertension, Sleep Apnea/CPAP/BIPAP Additional Past Medical History / Comment(s): DOES'NR USE HIS CPAP MACHINE. HAD CHICKEN POX IN HIS 30'S, COMPRESSION FX TO VERTEBRE History of Any Multi-Drug Resistant Organisms: None Reported Past Surgical History: Heart Catheterization, Heart Catheterization With Stent, Hernia Repair Past Anesthesia/Blood Transfusion Reactions: No Reported Reaction Date of Last Stent Placement:: UNK Past Psychological History: Depression Additional Psychological History / Comment(s): STARTED SMOKING AT AGE 18 SMOKED 1.5 PPD, QUIT [id number]. ADMITS TO DRINKING 3-6 BEERS PER DAY. PT LIVES WITH HIS AND DAUGHTER. 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 Smoking Status: Former smoker Past Alcohol Use History: Daily Additional Past Alcohol Use History / Comment(s): 3-6 BEER PER DAY Past Drug Use History: None Reported - Past Family History Mother Family Medical History: AFIB, Congestive Heart Failure (CHF), Coronary Artery Disease (CAD), Hyperlipidemia, Hypertension, Osteoarthritis (OA), Vascular Disorder Additional Family Medical History / Comment(s): CABG, HAD BKA AND SOME TOES REMOVED FROM OTHER LEG D/T VASCULAR PROBLEMS, angina Father Family Medical History: Cancer, COPD, Coronary Artery Disease (CAD), Hyperlipidemia, Hypertension, Liver Disease Additional Family Medical History / Comment(s): LIVER CANCER, CABG, Emphysema Brother(s) Family Medical History: Sleep Apnea/CPAP/BIPAP Additional Family Medical History / Comment(s): in sleep Medications and Allergies Home Medications Medication Instructions Recorded Confirmed Type Aspirin 81 mg PO HS 02/19/16 09/30/24 History Atorvastatin [Lipitor] 20 mg PO HS 02/19/16 06/18/17 History Nitroglycerin Sl Tabs [Nitrostat] 0.4 mg SUBLINGUAL Q5M PRN 02/19/16 09/30/24 History Omeprazole [PriLOSEC] 40 mg PO AC-BRKFST 02/19/16 09/30/24 History lisinopriL [Zestril] 10 mg PO HS 02/19/16 06/18/17 History Docusate [Colace] 100 mg PO BID #30 capsule 06/18/17 Rx Hydrocodone/Acetaminophen [[place] 1 each PO Q4HR PRN #20 tab 06/18/17 Rx 5-325] Metoprolol Tartrate [Lopressor] 25 mg PO BID #0 tab 06/19/17 09/30/24 Rx ALPRAZolam [Xanax] 0.5 mg PO DAILY 09/30/24 09/30/24 History Celecoxib 200 mg PO BID 09/30/24 09/30/24 History Cetirizine HCl [Zyrtec] 10 mg PO DAILY 09/30/24 09/30/24 History Fluticasone Nasal [place] [Flonase 1 spray EA NOSTRIL DAILY 09/30/24 09/30/24 History Nasal [place]] Losartan/Hydrochlorothiazide See Rx Instructions .ROUTE .COMPLEX 09/30/24 09/30/24 History [Losartan-Hctz 100-25 mg Tab] Simvastatin [Zocor] 20 mg PO HS 09/30/24 09/30/24 History buPROPion HCL [buPROPion HCL XL] 300 mg PO DAILY 09/30/24 09/30/24 History Allergies Allergy/AdvReac Type Severity Reaction Status Date / Time No Known Allergies Allergy Verified 06/18/17 07:34 Physical Exam Vitals: Vital Signs Temp Pulse Resp BP Pulse Ox 09/30/24 14:52 97.6 F 58 L 16 149/72 99 Intake and Output 09/30/24 09/30/24 09/30/24 06:59 14:59 22:59 Other: Weight 114.759 kg Sleep Note - Sleep Data ESS Total: 10 - Sleep Note Sleep Note: Temperature: 97.6 F Pulse Rate: 58 Respiratory Rate: 16 Blood Pressure: 149/72 SpO2: 99 Height: 6 ft 0.2 in Weight: 114.759 kg BMI: Neck Circumference: 18.5
== END ==
LOC: 3 N SLEEP 14:43
PROVIDERS: ATTEND Internal Medicine
DX: G47.33 Obstructive sleep apnea (adult) (pediatric) (principal); M26.19 Other specified anomalies of jaw-cranial base relationship; E66.9 Obesity, unspecified; I10 Essential (primary) hypertension; I25.10 Atherosclerotic heart disease of native coronary artery without angina pectoris; K21.9 Gastro-esophageal reflux disease without esophagitis; E78.5 Hyperlipidemia, unspecified; N40.0 Benign prostatic hyperplasia without lower urinary tract symptoms; Z90.49 Acquired absence of other specified parts of digestive tract; Z68.34 Body mass index [BMI] 34.0-34.9, adult; Z95.5 Presence of coronary angioplasty implant and graft; Z79.899 Other long term (current) drug therapy; Z87.891 Personal history of nicotine dependence
CPT/HCPCS: 99211

== ENCOUNTER → 2025-04-22 | Outpatient (CLI) | payer OTHER ==
[2025-04-22 19:09] LABS: Anion Gap 10.90 mmol/L (4.00-12.00); BUN/Creat Ratio 11.27 Ratio (12.00-20.00); Blood Urea Nitrogen 12.4 mg/dL (9.0-27.0); Calcium 9.3 mg/dL (8.7-10.3); Carbon Dioxide 24.1 mmol/L (21.6-31.8); Chloride 94 mmol/L (96-109); Glucose 83 mg/dL (70-110); Potassium 4.3 mmol/L (3.5-5.5); Sodium 129 mmol/L (135-145)
== END | disposition home or self-care (01) ==
LOC: LABWHC1 14:03
PROVIDERS: ATTEND Family Medicine
DX: E87.1 Hypo-osmolality and hyponatremia (principal)
CPT/HCPCS: 36415; 80048